=== PATIENT | female | born 1945 | race Caucasian/White ===

== ENCOUNTER 2017-12-07 13:18 | Emergency (ER) | payer OTHER ==
[~2017-12-07] VITALS: Ht 160 cm; Wt 89.2 kg
[2017-12-07] MEDS ORDERED: NIX 5% CREAM60 GM TP (16:29)
[2017-12-07] MEDS ORDERED: ATARAX,VISTARIL25 MG PO (16:31)
[2017-12-07 16:47] VITALS: BP 146/55
== END 2017-12-07 16:49 | disposition home or self-care (01) ==
LOC: EME 13:18
DX: S60.561A Insect bite (nonvenomous) of right hand, initial encounter (principal); S60.562A Insect bite (nonvenomous) of left hand, initial encounter; S40.861A Insect bite (nonvenomous) of right upper arm, initial encounter; S40.862A Insect bite (nonvenomous) of left upper arm, initial encounter; S00.86XA Insect bite (nonvenomous) of other part of head, initial encounter; W57.XXXA Bitten or stung by nonvenomous insect and other nonvenomous arthropods, initial encounter; Y92.59 Other trade areas as the place of occurrence of the external cause; F17.200 Nicotine dependence, unspecified, uncomplicated
CPT/HCPCS: 99281; 99283

== ENCOUNTER 2018-02-18 03:14 | Emergency (ER) | payer OTHER ==
[~2018-02-18] VITALS: Ht 160 cm; Wt 89.9 kg
[~2018-02-18 03:14] MED LIST: ATARAX,VISTARIL25 MG PO; NIX 5% CREAM60 GM TP
[2018-02-18] MEDS ORDERED: LORTAB 5-325 M1 EACH PO (04:13)
[2018-02-18 04:37] VITALS: BP 178/61
== END 2018-02-18 04:38 | disposition home or self-care (01) ==
LOC: EME → EDBD 03:14 → EME 03:14
DX: S89.92XA Unspecified injury of left lower leg, initial encounter (principal); W19.XXXA Unspecified fall, initial encounter; W54.1XXA Struck by dog, initial encounter; E11.9 Type 2 diabetes mellitus without complications; E78.5 Hyperlipidemia, unspecified; F17.200 Nicotine dependence, unspecified, uncomplicated
CPT/HCPCS: 73564; 99281; 99283

== ENCOUNTER 2018-04-10 23:56 | Emergency (ER) | payer OTHER ==
[~2018-04-10] VITALS: Ht 160 cm; Wt 91.0 kg
[~2018-04-10 23:56] MED LIST changes: +LORTAB 5-325 M1 EACH PO
[2018-04-11] MEDS ORDERED: PERCOCET 5/31 TABLET PO (02:26)
[2018-04-11] MEDS ORDERED: VALIUM5 MG PO (02:26)
[2018-04-11 02:37] VITALS: BP 138/74
== END 2018-04-11 02:38 | disposition home or self-care (01) ==
LOC: EME 23:56
DX: M62.830 Muscle spasm of back (principal); E11.9 Type 2 diabetes mellitus without complications; F17.200 Nicotine dependence, unspecified, uncomplicated; Z86.73 Personal history of transient ischemic attack (TIA), and cerebral infarction without residual deficits
CPT/HCPCS: 93005; 99281; 99284